=== PATIENT | female | born 1995 | race Caucasian/White ===

== ENCOUNTER 2018-01-08 11:15 | Emergency (ER) | payer SELFPAY ==
[~2018-01-08 11:15] MED LIST: AMOX-559 PO; AZIT1PAC13 PO; DESO1TAB17 PO; LOR5/325 PO; POLY17PO25 PO
--- NOTE | 2018-01-08 11:24 | ER Report ---
History and Physical Time Seen By MD: 11:24 Hx. of Stated Complaint: PATIENT REPORTS THAT SHE WAS DRIVING HOME FROM THE [employer] STORE AND STARTED HAVING SHORTNESS OF BREATH. HPI/ROS CHIEF COMPLAINT: Shortness of breath HISTORY OF PRESENT ILLNESS: 22-year-old female patient presents to emergency room with complaint of shortness of breath. Patient states that she was driving home from the grocery store today when she developed shortness of breath. She states that she became so short of breath that she had to kiln puller to catch her breath. She states that she is not had any fevers, chills, nausea, vomiting or diarrhea. Patient states that she did have some chest pain which is resolved this point in time. She states that when she returned home that the shortness of breath seemed to worsen. Patient states that she does smoke a pack a week, as well as is not currently taking any control. She denies being sexually active at this time. Patient states that she is feeling "out of it" at this time. REVIEW OF SYSTEMS: Respiratory: As noted above Cardiovascular: As noted above Gastrointestinal: No vomiting, no abdominal pain. Musculoskeletal: No back pain. Allergies: Coded Allergies: No Known Drug Allergies (Unverified , 02/01/13) Home Meds Active Scripts Hydroxyzine Hcl (HYDROXYZINE HCL) 25 Mg Tablet, 25 MG PO Q6H Y for ANXIETY, #20 TAB Prov:DANA BROUSSARD 01/08/18 Discontinued Reported Medications Polyethylene Glycol 3350 (MIRALAX) 17 Gm Powd.pack, 17 GM PO BID 02/01/13 Desogestrel-Ethinyl Estradiol (DESOGEN) 1 Each Tablet, 1 EACH PO DAILY 02/01/13 Azithromycin (ZITHROMAX) 1 Gm Packet, 1 TAB PO DAILY, #5 02/01/13 Discontinued Scripts Hydrocodone Bit/Acetaminophen (HYDROCODON-ACETAMINOPHEN 5-325) 1 Each Tablet, 1 EACH PO Q4-6H, #14 TAKE ONE TABLET BY MOUTH EVERY 4-6 HOURS NEEDED FOR PAIN Prov:PABLO ALCARAZ MANAGER OF TRAINING AND DEVELOPMENT 10/11/13 Amoxicillin/Pot Clav 875-125 Mg Tab (AUGMENTIN 875-125 TABLET) 1 Each Tablet, 1 TAB PO Q12H, #20 TAB TAKE ONE TABLET BY MOUTH EVERY 12 HOURS Prov:PABLO ALCARAZ MANAGER OF TRAINING AND DEVELOPMENT 10/11/13 Past Medical/Surgical History Patient denies any pertinent medical or surgical history. Patient has a family medical history of cancer, CAD, stroke, diabetes. Reviewed Nurses Notes: Yes Hx Smoking: Yes Smoking Status: Heavy Tobacco Smoker Exposure to Second Hand Smoke?: Yes Hx Substance Use Disorder: No Hx Alcohol Use: No Constitutional Vital Sign - Last 24 Hours 01/08/18 01/08/18 01/08/18 01/08/18 11:17 11:19 11:30 11:45 Temp 98.1 Pulse 104 89 Resp 24 30 B/P (MAP) 142/87 (105) 142/87 117/86 (96) Pulse Ox 96 95 O2 Delivery Room Air 01/08/18 01/08/18 01/08/18 01/08/18 12:15 12:20 12:25 12:30 Pulse 76 75 76 73 Resp 16 20 20 13 Pulse Ox 97 95 96 92 01/08/18 12:31 B/P (MAP) 108/68 (81) Physical Exam General Appearance: The patient is alert, has no immediate need for airway protection and no current signs of toxicity. Respiratory: Chest is non tender, lungs are clear to auscultation. Cardiac: regular rate and rhythm Gastrointestinal: Abdomen is soft and non tender, no masses, bowel sounds normal. Musculoskeletal: Neck: Neck is supple and non tender. Extremities have full range of motion and are non tender. Skin: No rashes or lesions. DIFFERENTIAL DIAGNOSIS: After history and physical exam differential diagnosis was considered for shortness of breath including but not limited to pulmonary infectious process, COPD, asthma, pulmonary embolus and congestive heart failure. Medical Decision Making Data Points Result Diagram: 01/08/18 1140 01/08/18 1140 Laboratory Hematology Test 01/08/18 11:40 Red Blood Count 4.98 M/uL (4.17-5.56) Mean Corpuscular Volume 83.0 fL (80.0-96.0) Mean Corpuscular Hemoglobin 28.6 pg (26.0-33.0) Mean Corpuscular Hemoglobin Concent 34.4 g/dL (32.0-36.0) Red Cell Distribution Width 13.4 % (11.5-14.5) Mean Platelet Volume 9.9 fL (7.2-11.1) Neutrophils (%) (Auto) 57.0 % (39.4-72.5) Lymphocytes (%) (Auto) 31.7 % (17.6-49.6) Monocytes (%) (Auto) 9.8 % (4.1-12.4) Eosinophils (%) (Auto) 0.8 % (0.4-6.7) Basophils (%) (Auto) 0.7 % (0.3-1.4) Nucleated RBC Relative Count (auto) 0.0 /100WBC Neutrophils # (Auto) 4.4 K/uL (2.0-7.4) Lymphocytes # (Auto) 2.4 K/uL (1.3-3.6) Monocytes # (Auto) 0.8 K/uL (0.3-1.0) Eosinophils # (Auto) 0.1 K/uL (0.0-0.5) Basophils # (Auto) 0.1 K/uL (0.0-0.1) Nucleated RBC Absolute Count (auto) 0.00 K/uL D-Dimer Quantitative (PE/DVT) < 0.27 ug/ml (0-0.50) Sodium Level 142 mmol/L (137-145) Potassium Level 3.1 mmol/L (3.5-5.0) Chloride Level 106 mmol/L (98-107) Carbon Dioxide Level 24 mmol/L (22-31) Blood Urea Nitrogen 5 mg/dl (7-18) Creatinine 0.80 mg/dl (0.52-1.04) Glomerular Filtration Rate Calc > 60.0 Random Glucose 108 mg/dl (75-110) Calcium Level 9.1 mg/dl (8.4-10.2) Total Bilirubin 0.5 mg/dl (0.2-1.3) Aspartate Amino Transf (AST/SGOT) 19 U/L (0-35) Alanine Aminotransferase (ALT/SGPT) 17 U/L (0-56) Alkaline Phosphatase 77 U/L (0-126) Troponin I < 0.012 ng/ml Total Protein 7.7 g/dl (6.3-8.2) Albumin 4.6 g/dl (3.5-5.0) Human Chorionic Gonadotropin, Qual Negative (NEGATIVE) Chemistry Test 01/08/18 11:40 White Blood Count 7.7 k/uL (4.5-11.0) Red Blood Count 4.98 M/uL (4.17-5.56) Hemoglobin 14.2 g/dL (12.0-16.0) Hematocrit 41.3 % (34.0-47.0) Mean Corpuscular Volume 83.0 fL (80.0-96.0) Mean Corpuscular Hemoglobin 28.6 pg (26.0-33.0) Mean Corpuscular Hemoglobin Concent 34.4 g/dL (32.0-36.0) Red Cell Distribution Width 13.4 % (11.5-14.5) Platelet Count 222 K/uL (150-450) Mean Platelet Volume 9.9 fL (7.2-11.1) Neutrophils (%) (Auto) 57.0 % (39.4-72.5) Lymphocytes (%) (Auto) 31.7 % (17.6-49.6) Monocytes (%) (Auto) 9.8 % (4.1-12.4) Eosinophils (%) (Auto) 0.8 % (0.4-6.7) Basophils (%) (Auto) 0.7 % (0.3-1.4) Nucleated RBC Relative Count (auto) 0.0 /100WBC Neutrophils # (Auto) 4.4 K/uL (2.0-7.4) Lymphocytes # (Auto) 2.4 K/uL (1.3-3.6) Monocytes # (Auto) 0.8 K/uL (0.3-1.0) Eosinophils # (Auto) 0.1 K/uL (0.0-0.5) Basophils # (Auto) 0.1 K/uL (0.0-0.1) Nucleated RBC Absolute Count (auto) 0.00 K/uL D-Dimer Quantitative (PE/DVT) < 0.27 ug/ml (0-0.50) Glomerular Filtration Rate Calc > 60.0 Calcium Level 9.1 mg/dl (8.4-10.2) Total Bilirubin 0.5 mg/dl (0.2-1.3) Aspartate Amino Transf (AST/SGOT) 19 U/L (0-35) Alanine Aminotransferase (ALT/SGPT) 17 U/L (0-56) Alkaline Phosphatase 77 U/L (0-126) Troponin I < 0.012 ng/ml Total Protein 7.7 g/dl (6.3-8.2) Albumin 4.6 g/dl (3.5-5.0) Human Chorionic Gonadotropin, Qual Negative (NEGATIVE) Coagulation Test 01/08/18 11:40 D-Dimer Quantitative (PE/DVT) < 0.27 ug/ml EKG/Imaging EKG Interpretation 12 lead EKG: Rhythm: normal sinus rhythm with a ventricular rate of 85 bpm [place]: normal QRS: normal ST segments: normal Imaging CHEST PA AND LAT Additional pertinent History: Respiratory distress COMPARISON STUDIES: None FINDINGS: Support lines and catheters: None Lungs and Pleura: Lung gomez well expanded with no infiltrates or consolidations. No parenchymal mass lesions are seen. There are no effusions Heart and vasculature: Negative. Michelle and Mediastinum: Negative. Bones and Chest wall: Negative. Upper Abdomen: Negative. IMPRESSION: 1. Normal chest Report Dictated By: Taj Perdomo MD at 01/08/2018 12:12 PM Report E-Signed By: Taj Perdomo MD at 01/08/2018 12:13 PM ED Course/Re-evaluation ED Course Patient was admitted to exam room, history and physical were obtained. Differential diagnoses were considered. On examination lungs are clear, heart is regular. A CBC, CMP, chest x-ray, troponin, EKG, d-dimer were done. The lab results were unremarkable, she did have a slightly low potassium of 3.1. EKG showed a normal sinus rhythm, d-dimer was negative. Chest x-ray showed no acute cardiopulmonary processes. I discussed the findings with the patient. I believe that she likely had some anxiety. I believe there is a component of depression with this. We will go ahead and give her hydroxyzine machine take as needed for her anxiety. She is to get plenty of rest, increase her fluid intake. I would like her to follow-up with [facility]. She is return to emergency room if condition worsens. Patient verbalized understanding and agreement with plan. Decision to Disposition Date: Jan 08, 2018 Decision to Disposition Time: 12:26 Depart Departure Latest Vital Signs Vital Signs Date Time Temp Pulse Resp B/P (MAP) Pulse Ox O2 Delivery O2 Flow Rate FiO2 01/08/18 12:31 108/68 (81) 01/08/18 12:30 73 13 92 01/08/18 11:19 98.1 Room Air Impression: Primary Impression: Anxiety Condition: Improved Disposition: HOME OR SELF-CARE New Scripts Hydroxyzine Hcl (HYDROXYZINE HCL) 25 Mg Tablet 25 MG PO Q6H Y for ANXIETY, #20 TAB Prov: DANA BROUSSARD 01/08/18 Patient Instructions: Anxiety (ED) Additional Instructions: Increase fluid intake. Get plenty of rest. Increase potassium in your diet, with bananas. Follow up with [facility] for your anxiety in the next week. Return to the ER if condition worsens. DANA BROUSSARD Jan 08, 2018 11:24
[2018-01-08 11:54] LABS: PLATELET COUNT, AUTOMATED 222 K/uL (150-450)
--- NOTE | 2018-01-08 11:59 | EKG ---
FACILITY: [facility] PATIENT NAME: KEMI COOPER : [id number] MR: [id number] V: [id number] EXAM DATE: ORDERING PHYSICIAN: DANA BROUSSARD TECHNOLOGIST: DOTTIE Test Reason : SOB Blood Pressure : / mmHG Vent. Rate : 085 BPM Atrial Rate : 085 BPM P-R Int : 140 ms QRS Dur : 086 ms QT Int : 374 ms P-R-T Axes : 043 073 030 degrees QTc Int : 445 ms Normal sinus rhythm Normal ECG No previous ECGs available Confirmed by ROSEMARY BUTTS ([id number]) on 01/09/2018 6:25:35 AM Referred By: DEBORAH Confirmed By:ROSEMARY BUTTS
--- NOTE | 2018-01-08 12:18 | RADIOLOGY IMAGING REPORT ---
FACILITY: [facility] PATIENT NAME: Rubin Mosley : 1995 MR: [id number] V: [id number] EXAM DATE: ORDERING PHYSICIAN: DANA BROUSSARD TECHNOLOGIST: Location: [facility] Patient: Rubin Mosley : 1995 Visit/Account:[id number] Date of Sevice: 01/08/2018 CHEST PA AND LAT Additional pertinent History: Respiratory distress COMPARISON STUDIES: None FINDINGS: Support lines and catheters: None Lungs and Pleura: Lung gomez well expanded with no infiltrates or consolidations. No parenchymal ma ss lesions are seen. There are no effusions Heart and vasculature: Negative. Michelle and Mediastinum: Negative. Bones and Chest wall: Negative. Upper Abdomen: Negative. IMPRESSION: 1. Normal chest Report Dictated By: Taj Perdomo MD at 01/08/2018 12:12 PM Report E-Signed By: Taj Perdomo MD at 01/08/2018 12:13 PM [id number]
[2018-01-08] MEDS ORDERED: HYDR-4225 PO (12:25)
[2018-01-08 12:31] VITALS: BP 108/68
== END 2018-01-08 12:42 | disposition home or self-care (01) ==
LOC: ER 11:15
DX: F41.9 Anxiety disorder, unspecified (principal)
CPT/HCPCS: 71046; 82040; 82247; 82310; 82374; 82435; 82565; 82947; 84075; 84132; 84155; 84295; 84450; 84460; 84484; 84520; 84703; 85025; 85379; 93005; 99284

== ENCOUNTER 2018-08-27 10:30 | Emergency (ER) | payer SELFPAY ==
[~2018-08-27 10:30] MED LIST changes: +HYDR-4225 PO
--- NOTE | 2018-08-27 10:33 | ER Report ---
History and Physical Time Seen By MD: 10:32 HPI/ROS CHIEF COMPLAINT: Abdominal pain, diarrhea HISTORY OF PRESENT ILLNESS: Patient is a 22-year-old female with no prior medical problems here with complaints of abdominal pain, diarrhea for the past several days. Patient reports that she has decreased appetite, nausea, diffuse pain. Denies prior surgeries to the abdomen, medical problems or medications. Patient is afebrile at time of evaluation, nontoxic-appearing REVIEW OF SYSTEMS: Constitutional: No fever, no chills. Eyes: No discharge. ENT: No sore throat. Cardiovascular: No chest pain, no palpitations. Respiratory: No cough, no shortness of breath. Gastrointestinal: + diffuse abdominal pain, no vomiting. Genitourinary: No hematuria. Musculoskeletal: No back pain. Skin: No rashes. Neurological: No headache. Allergies: Coded Allergies: amoxicillin (Verified Allergy, Unknown, 08/27/18) Home Meds Active Scripts Ondansetron 4 Mg Odt (ONDANSETRON 4 MG ODT) 4 Mg Tab.rapdis, 4 MG PO ONCE, #30 TAB Prov:ARLENE SHARP DO 08/27/18 Ciprofloxacin Hcl 500 Mg Tab (CIPRO 500 MG TAB) 500 Mg Tablet, 500 MG PO BID for 7 Days, #14 TAB Prov:ARLENE SHARP DO 08/27/18 Metronidazole (METRONIDAZOLE) 500 Mg Tablet, 500 MG PO TID for 7 Days, #21 TAB Prov:ARLENE SHARP DO 08/27/18 Hydroxyzine Hcl (HYDROXYZINE HCL) 25 Mg Tablet, 25 MG PO Q6H PRN for ANXIETY, #20 TAB Prov:DANA BROUSSARD ASSISTANT [employer] MANAGER 01/08/18 Hx Smoking: Yes Smoking Status: Heavy Tobacco Smoker Exposure to Second Hand Smoke?: Yes Hx Substance Use Disorder: No Hx Alcohol Use: No Constitutional Vital Sign - Last 24 Hours 08/27/18 08/27/18 08/27/18 08/27/18 10:30 10:37 10:37 10:45 Temp 97.6 Pulse ??? 101 88 Resp 16 B/P (MAP) 126/85 (99) 126/85 Pulse Ox 94 95 O2 Delivery Room Air 08/27/18 08/27/18 08/27/18 08/27/18 11:00 11:13 11:15 11:30 Pulse 85 98 90 B/P (MAP) 116/63 (80) 116/61 (79) Pulse Ox 97 91 88 08/27/18 08/27/18 08/27/18 08/27/18 11:45 12:00 12:15 12:20 Pulse 75 74 74 75 B/P (MAP) 101/59 (73) Pulse Ox 94 94 93 93 08/27/18 08/27/18 08/27/18 08/27/18 12:30 12:35 12:50 13:00 Pulse 76 83 B/P (MAP) 101/61 (74) 89/45 (60) Pulse Ox 93 93 08/27/18 08/27/18 08/27/18 08/27/18 13:05 13:20 13:30 13:35 Pulse 87 78 81 B/P (MAP) 99/56 (70) Pulse Ox 93 94 93 Physical Exam General Appearance: The patient is alert, has no immediate need for airway protection and no signs of toxicity. Moderate discomfort due to pain Eyes: Pupils equal and round no pallor or injection. ENT, Mouth: Mucous membranes are moist. Respiratory: There are no retractions, lungs are clear to auscultation. Cardiovascular: Regular rate and rhythm. Gastrointestinal: Abdomen is diffusely tender with no guarding or rebound. Neurological: No focal neurological findings Skin: Warm and dry, no rashes. Musculoskeletal: Neck is supple non tender. Extremities are nontender, nonswollen and have full range of motion. DIFFERENTIAL DIAGNOSIS: After history and physical exam differential diagnosis was considered for abdominal pain including but not limited to appendicitis, cholecystitis, gastritis and urinary tract infection. Medical Decision Making Data Points Result Diagram: 08/27/18 1109 08/27/18 1109 Laboratory Hematology Test 08/27/18 00:00 08/27/18 10:35 08/27/18 10:51 08/27/18 11:09 Urine HCG, Qualitative Negative (NEGATIVE) Urine Color Straw Urine Clarity Slightly-cloudy Urine pH 5.0 pH (4.8-9.5) Urine Specific [place] 1.004 Urine Protein Negative mg/dL (NEGATIVE) Urine Glucose (UA) Negative mg/dL (NEGATIVE) Urine Ketones Negative mg/dL (NEGATIVE) Urine Blood Negative (NEGATIVE) Urine Nitrite Negative (NEGATIVE) Urine Bilirubin Negative (NEGATIVE) Urine Urobilinogen Negative mg/dL (0.2-1.9) Urine Leukocyte Esterase Small (NEGATIVE) Urine RBC None /HPF (0-2/HPF) Urine WBC 1 /HPF (0-5/HPF) Urine Squamous Epithelial Cells Many /LPF (</=FEW) Urine Amorphous Crystals Few /HPF Urine Bacteria Negative /HPF (NONE-FEW) Urine Mucus Few /HPF (NONE-FEW) Influenza Virus Type A (PCR) Negative (NEGATIVE) Influenza Virus Type B (PCR) Negative (NEGATIVE) Red Blood Count 4.71 M/uL (4.17-5.56) Mean Corpuscular Volume 84.4 fL (80.0-96.0) Mean Corpuscular Hemoglobin 28.2 pg (26.0-33.0) Mean Corpuscular Hemoglobin Concent 33.4 g/dL (32.0-36.0) Red Cell Distribution Width 13.3 % (11.5-14.5) Mean Platelet Volume 9.1 fL (7.2-11.1) Neutrophils (%) (Auto) 58.5 % (39.4-72.5) Lymphocytes (%) (Auto) 31.8 % (17.6-49.6) Monocytes (%) (Auto) 8.0 % (4.1-12.4) Eosinophils (%) (Auto) 1.3 % (0.4-6.7) Basophils (%) (Auto) 0.4 % (0.3-1.4) Nucleated RBC Relative Count (auto) 0.0 /100WBC Neutrophils # (Auto) 3.8 K/uL (2.0-7.4) Lymphocytes # (Auto) 2.1 K/uL (1.3-3.6) Monocytes # (Auto) 0.5 K/uL (0.3-1.0) Eosinophils # (Auto) 0.1 K/uL (0.0-0.5) Basophils # (Auto) 0.0 K/uL (0.0-0.1) Nucleated RBC Absolute Count (auto) 0.00 K/uL Sodium Level 139 mmol/L (137-145) Potassium Level 4.1 mmol/L (3.5-5.0) Chloride Level 107 mmol/L (98-107) Carbon Dioxide Level 23 mmol/L (22-31) Blood Urea Nitrogen 8 mg/dl (7-18) Creatinine 0.60 mg/dl (0.52-1.04) Glomerular Filtration Rate Calc > 60.0 Random Glucose 87 mg/dl (75-110) Calcium Level 8.8 mg/dl (8.4-10.2) Total Bilirubin 0.5 mg/dl (0.2-1.3) Aspartate Amino Transf (AST/SGOT) 21 U/L (0-35) Alanine Aminotransferase (ALT/SGPT) 24 U/L (0-56) Alkaline Phosphatase 68 U/L (0-126) C-Reactive Protein 0.7 mg/dl (<1.0) Total Protein 7.4 g/dl (6.3-8.2) Albumin 4.3 g/dl (3.5-5.0) Lipase 57 U/L (23-300) Helicobacter pylori IgG Antibody Negative (NEGATIVE) Chemistry Test 08/27/18 00:00 08/27/18 10:35 08/27/18 10:51 08/27/18 11:09 Urine HCG, Qualitative Negative (NEGATIVE) Urine Color Straw Urine Clarity Slightly-cloudy Urine pH 5.0 pH (4.8-9.5) Urine Specific [place] 1.004 Urine Protein Negative mg/dL (NEGATIVE) Urine Glucose (UA) Negative mg/dL (NEGATIVE) Urine Ketones Negative mg/dL (NEGATIVE) Urine Blood Negative (NEGATIVE) Urine Nitrite Negative (NEGATIVE) Urine Bilirubin Negative (NEGATIVE) Urine Urobilinogen Negative mg/dL (0.2-1.9) Urine Leukocyte Esterase Small (NEGATIVE) Urine RBC None /HPF (0-2/HPF) Urine WBC 1 /HPF (0-5/HPF) Urine Squamous Epithelial Cells Many /LPF (</=FEW) Urine Amorphous Crystals Few /HPF Urine Bacteria Negative /HPF (NONE-FEW) Urine Mucus Few /HPF (NONE-FEW) Influenza Virus Type A (PCR) Negative (NEGATIVE) Influenza Virus Type B (PCR) Negative (NEGATIVE) White Blood Count 6.5 k/uL (4.5-11.0) Red Blood Count 4.71 M/uL (4.17-5.56) Hemoglobin 13.3 g/dL (12.0-16.0) Hematocrit 39.8 % (34.0-47.0) Mean Corpuscular Volume 84.4 fL (80.0-96.0) Mean Corpuscular Hemoglobin 28.2 pg (26.0-33.0) Mean Corpuscular Hemoglobin Concent 33.4 g/dL (32.0-36.0) Red Cell Distribution Width 13.3 % (11.5-14.5) Platelet Count 200 K/uL (150-450) Mean Platelet Volume 9.1 fL (7.2-11.1) Neutrophils (%) (Auto) 58.5 % (39.4-72.5) Lymphocytes (%) (Auto) 31.8 % (17.6-49.6) Monocytes (%) (Auto) 8.0 % (4.1-12.4) Eosinophils (%) (Auto) 1.3 % (0.4-6.7) Basophils (%) (Auto) 0.4 % (0.3-1.4) Nucleated RBC Relative Count (auto) 0.0 /100WBC Neutrophils # (Auto) 3.8 K/uL (2.0-7.4) Lymphocytes # (Auto) 2.1 K/uL (1.3-3.6) Monocytes # (Auto) 0.5 K/uL (0.3-1.0) Eosinophils # (Auto) 0.1 K/uL (0.0-0.5) Basophils # (Auto) 0.0 K/uL (0.0-0.1) Nucleated RBC Absolute Count (auto) 0.00 K/uL Glomerular Filtration Rate Calc > 60.0 Calcium Level 8.8 mg/dl (8.4-10.2) Total Bilirubin 0.5 mg/dl (0.2-1.3) Aspartate Amino Transf (AST/SGOT) 21 U/L (0-35) Alanine Aminotransferase (ALT/SGPT) 24 U/L (0-56) Alkaline Phosphatase 68 U/L (0-126) C-Reactive Protein 0.7 mg/dl (<1.0) Total Protein 7.4 g/dl (6.3-8.2) Albumin 4.3 g/dl (3.5-5.0) Lipase 57 U/L (23-300) Helicobacter pylori IgG Antibody Negative (NEGATIVE) Urinalysis Test 08/27/18 00:00 08/27/18 10:35 Urine HCG, Qualitative Negative (NEGATIVE) Urine Color Straw Urine Clarity Slightly-cloudy Urine pH 5.0 pH (4.8-9.5) Urine Specific [place] 1.004 Urine Protein Negative mg/dL (NEGATIVE) Urine Glucose (UA) Negative mg/dL (NEGATIVE) Urine Ketones Negative mg/dL (NEGATIVE) Urine Blood Negative (NEGATIVE) Urine Nitrite Negative (NEGATIVE) Urine Bilirubin Negative (NEGATIVE) Urine Urobilinogen Negative mg/dL (0.2-1.9) Urine Leukocyte Esterase Small (NEGATIVE) Urine RBC None /HPF (0-2/HPF) Urine WBC 1 /HPF (0-5/HPF) Urine Squamous Epithelial Cells Many /LPF (</=FEW) Urine Amorphous Crystals Few /HPF Urine Bacteria Negative /HPF (NONE-FEW) Urine Mucus Few /HPF (NONE-FEW) EKG/Imaging Imaging Location: [facility] Patient: Rubin Mosley : 1995 Visit/Account:[id number] Date of Sevice: 08/27/2018 CT ABDOMEN PELVIS W/ CON HISTORY: Abdominal pain. TECHNIQUE: CT abdomen and pelvis with intravenous contrast. One of the following dose optimization techniques was utilized in the performance of this exam: Automated exposure control; adjustment of the mA and/or kV according to the patient's size; or use of an iterative reconstructio n technique. Specific details can be referenced in the facility's radiology CT exam operational policy. CONTRAST: 75 mL Isovue-370. COMPARISON: None. FINDINGS: Visualized lung bases: Negative. Hepatobiliary: Negative. Spleen: Negative. Adrenals: Negative. Pancreas: Negative. Kidneys/: 1.8 cm cyst within the left kidney. Multiple follicles within the ovaries. Otherwise negative. GI: Mild/moderate circumference or wall thickening within the distal colon. No evidence for obstruction. Appendix is unremarkable. Vessels/spaces/nodes: Negative. Bones/soft tissues: Negative. IMPRESSION: Mild/moderate circumference or wall thickening within the distal colon which is likely related to an infectious/inflammatory colitis. ED Course/Re-evaluation ED Course Patient is a 22-year-old female here with complaints of diffuse abdominal pain acute onset for several days and an episode of bloody diarrhea yesterday here with complaints of persistent diffuse worsening abdominal pain. Patient denies fevers or chills, difficulty breathing, vomiting. Patient denies prior history of surgical interventions the abdomen, current medications. Patient is healthy at baseline. Patient was identified to have circumferential distal colon Wall t hickening consistent with colitis on CT imaging of the abdomen and pelvis. Labs were unremarkable with no leukocytosis, flu was negative. Patient was given scripts for Cipro and Flagyl for treatment. Patient was stable at time of discharge and was given return precautions, prescription for Zofran for symptom management. Recommend establishing PCP Decision to Disposition Date: Aug 27, 2018 Decision to Disposition Time: 13:36 Depart Departure Latest Vital Signs Vital Signs Date Time Temp Pulse Resp B/P (MAP) Pulse Ox O2 Delivery O2 Flow Rate FiO2 08/27/18 13:35 81 93 08/27/18 13:30 99/56 (70) 08/27/18 10:37 97.6 16 Room Air Impression: Primary Impression: Colitis Condition: Improved Disposition: HOME OR SELF-CARE New Scripts Ondansetron 4 Mg Odt (ONDANSETRON 4 MG ODT) 4 Mg Tab.rapdis 4 MG PO ONCE, #30 TAB Prov: ARLENE SHARP DO 08/27/18 Ciprofloxacin Hcl 500 Mg Tab (CIPRO 500 MG TAB) 500 Mg Tablet 500 MG PO BID for 7 Days, #14 TAB Prov: ARLENE SHARP DO 08/27/18 Metronidazole (METRONIDAZOLE) 500 Mg Tablet 500 MG PO TID for 7 Days, #21 TAB Prov: ARLENE SHARP DO 08/27/18 Departure Forms: ER Transition Record, Medications Reconciliation, Off Work/School Form, School or Work Release?: Work Number of days to be released: 2 Patient Portal Information Patient Instructions: Colitis (ED) Additional Instructions: You were diagnosed with a colitis. Please take metronidazole 1 tablet 3 times daily for 7 days. Please take Cipro 1 tablet twice daily for 7 days. Please follow-up with your primary care doctor in one week. Please return immediately if you develop worsening pain, inability to keep down food or fluids, fevers. ARLENE SHARP DO Aug 27, 2018 10:33
[2018-08-27] MEDS ORDERED: NS(*) 0.9% 1000 ML BAG 1,000 ML IV ONE (10:43)
[2018-08-27] MEDS ORDERED: fentaNYL CITR 100 MCG/2 ML AMP IVP ONE (10:45)
[2018-08-27] MEDS ORDERED: ONDANSETRON 4 MG/2 ML VIAL IVP ONE (10:45)
[2018-08-27] MEDS ORDERED: IOPAMIDOL 76% 75 ML INFUS BTL 75 ML ONE (10:58)
[2018-08-27 11:18] LABS: PLATELET COUNT, AUTOMATED 200 K/uL (150-450)
--- NOTE | 2018-08-27 11:55 | RADIOLOGY IMAGING REPORT ---
FACILITY: [facility] PATIENT NAME: Rubin Mosley : 1995 MR: [id number] V: [id number] EXAM DATE: ORDERING PHYSICIAN: ARLENE SHARP TECHNOLOGIST: Location: [facility] Patient: Rubin Mosley : 1995 Visit/Account:[id number] Date of Sevice: 08/27/2018 CT ABDOMEN PELVIS W/ CON HISTORY: Abdominal pain. TECHNIQUE: CT abdomen and pelvis with intravenous contrast. One of the following dose optimization techniques was utilized in the performance of this exam: Autom ated exposure control; adjustment of the mA and/or kV according to the patient's size; or use of an i terative reconstruction technique. Specific details can be referenced in the facility's radiology C T exam operational policy. CONTRAST: 75 mL Isovue-370. COMPARISON: None. FINDINGS: Visualized lung bases: Negative. Hepatobiliary: Negative. Spleen: Negative. Adrenals: Negative. Pancreas: Negative. Kidneys/: 1.8 cm cyst within the left kidney. Multiple follicles within the ovaries. Otherwise neg ative. GI: Mild/moderate circumference or wall thickening within the distal colon. No evidence for obstruct ion. Appendix is unremarkable. Vessels/spaces/nodes: Negative. Bones/soft tissues: Negative. IMPRESSION: Mild/moderate circumference or wall thickening within the distal colon which is likely related to an infectious/inflammatory colitis. Report Dictated By: Puma Almanza MD at 08/27/2018 11:47 AM Report E-Signed By: Puma Almanza MD at 08/27/2018 11:50 AM WSN:[id number]
[2018-08-27 13:30] VITALS: BP 99/56
[2018-08-27] MEDS ORDERED: CIPR-344 PO (13:30)
[2018-08-27] MEDS ORDERED: METR500T15 PO (13:30)
[2018-08-27] MEDS ORDERED: ONDA4TAB9 PO (13:43)
== END 2018-08-27 13:55 | disposition home or self-care (01) ==
LOC: ER 10:44
DX: K52.9 Noninfective gastroenteritis and colitis, unspecified (principal)
CPT/HCPCS: 74177; 81001; 81025; 83690; 85025; 86140; 86677; 87502; 96361; 96374; 96375; 99284; J2405; J3010; J7030; Q9967; 82040; 82247; 82310; 82374; 82435; 82565; 82947; 84075; 84132; 84155; 84295; 84450; 84460; 84520